=== PATIENT | female | born 1985 | race Caucasian/White ===

== ENCOUNTER 2016-12-19 00:22 | Emergency (ER) | payer OTHER ==
[2016-12-19 00:39] VITALS: BMI 22.8
[2016-12-19] MEDS ORDERED: KETOROLAC TROMETHAMINE 60 MG/2 ML VIAL IM ONE (01:16)
[2016-12-19] MEDS ORDERED: KETOROLAC TROMETHAMINE 60 MG/2 ML VIAL ONE (01:20)
--- NOTE | 2016-12-19 02:58 | PDOC ---
History of Present Illness - General Chief Complaint: Shortness of Breath Stated Complaint: DIFFICULTY BREATHING Time Seen by Provider: 12/19/16 00:49 - History of Present Illness Initial Comments: 12/19/16 02:31 CHIEF COMPLAINT: SOB HISTORY OF PRESENT ILLNESS: 31 yo F with hx of childhood asthma presents to ED with shortness of breath and pain "behind my left breast." Patient states she recently had "croup" that her sister's son and sister both had recently, and has been coughing persistently for two weeks. She denies fever, chills, nausea , vomiting, diarrhea. No recent travel or sick contacts. PAST MEDICAL HISTORY: Denies past medical history FAMILY HISTORY: Denies SOCIAL HISTORY: Denies tobacco, alcohol use. Smokes marijuana twice daily. SURGICAL HISTORY: Denies ALLERGIES: No known drug allergies REVIEW OF SYSTEMS General/Constitutional: Denies fever or chills. Denies weakness, weight change. HEENT: Denies change in vision. Denies ear pain or discharge. Denies sore throat. Cardiovascular: Denies chest pain or shortness of breath. Respiratory: Persistent cough x 2 weeks. Gastrointestinal: Denies nausea, vomiting, diarrhea or constipation. Genitourinary: Denies dysuria, frequency, or change in urination. Musculoskeletal: Denies joint or muscle swelling or pain. Denies neck or back pain. Skin: Denies rash or easy bruising. Neurologic: Denies headache, vertigo, loss of consciousness, or loss of sensation. PHYSICAL EXAM General Appearance: Anxious-appearing, appropriately dressed. HEENT: EOMI, PERRLA, normal ENT inspection, normal voice, TMs normal, pharynx normal. No conjunctival pallor. No photophobia, scleral icterus. Neck: Supple. Trachea midline. No tenderness, rigidity, carotid bruit, stridor , lymphadenopathy, or thyromegaly. Respiratory/Chest: Lungs CTAB. Cardiovascular: RRR. S1, S2. Gastrointestinal/Abdominal: Normal bowel sounds. Abdomen soft, non-distended. No tenderness or rebound tenderness. No organomegaly, pulsatile mass, guarding , hernia, hepatomegaly, splenomegaly. Musculoskeletal/Extremities: Tenderness to chest wall on palpation, worsened with inspiration. Normal inspection. FROM of all extremities, normal capillary refill. Pelvis Stable. No CVA tenderness. No tenderness to extremities, pedal edema, swelling, erythema or deformity. Integumentary: Appropriate color, dry, warm. 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 Fully oriented, alert. Appropriate mood/affect. Motor strength 5/5. No appreciable EOM palsy, facial droop or sensory deficit. Past History - Past Medical History Allergies/Adverse Reactions: Allergies Allergy/AdvReac Type Severity Reaction Status Date / Time No Known Allergies Allergy Verified 12/19/16 00:27 Home Medications: Ambulatory Orders Azithromycin [Zithromax Tri-Eros (3 DAYS) -] 500 mg PO DAILY #3 tablet 12/19/16 Ibuprofen 600 mg PO TID PRN #15 tablet 12/19/16 Psychiatric Problems: Yes (ANXIETY.) Other medical history: CERVICAL CANCER - Surgical History Abdominal Surgery: Yes - Psycho/Social/Smoking Cessation Hx Anxiety: Yes Suicidal Ideation: No Smoking History: Current every day smoker Have you smoked in the past 12 months: No Number of Cigarettes Smoked Daily: 10 Information on smoking cessation initiated: No Hx Alcohol Use: No Drug/Substance Use Hx: No Substance Use Type: None *Physical Exam - Vital Signs Last Vital Signs Temp Pulse Resp BP Pulse Ox 99.3 F 117 H 14 102/65 97 12/19/16 00:28 12/19/16 00:28 12/19/16 00:28 12/19/16 00:28 12/19/16 00:28 ED Treatment Course - RADIOLOGY Radiology Studies Ordered: Category Date Time Status CHEST PA & LAT [RAD] Stat Radiology 12/19/16 02:29 Ordered - Medications Given in the ED: ED Medications Discontinued Medications Generic Name Dose Route Start Last Admin Trade Name Freq PRN Reason Stop Dose Admin Ketorolac Tromethamine 60 mg 12/19/16 01:16 12/19/16 01:24 Toradol Injection - IM 12/19/16 01:17 60 mg ONCE ONE Administration Medical Decision Making - Medical Decision Making 12/19/16 03:18 31 yo F with hx of childhood asthma presents to ED with shortness of breath and chest pain on inspiration and movement. Chest pain reproducible with palpation. -Urine -60 mg Toradol -EKG EKG - NSR. Discussed case with attending MD Delaney, per MD will order D-dimer and CXR r/ o PE. D-dimer negative. CXR suggestive of left upper lobe infiltrate/pneumonitis. -azithromycin 500 mg daily x 3 days, rx sent to pharm Advised patient to take medication as prescribed and f/u with primary care provider. Advised patient of signs and symptoms for return to ER, patient verbalized understanding and agrees to plan. *DC/Admit/Observation/Transfer Diagnosis at time of Disposition: Pneumonitis - Discharge Dispostion Disposition: HOME Condition at time of disposition: Stable Admit: No - Prescriptions Prescriptions: Ibuprofen 600 mg PO TID PRN #15 tablet PRN Reason: Pain Azithromycin [Zithromax Tri-Eros (3 DAYS) -] 500 mg PO DAILY #3 tablet - Patient Instructions Printed Discharge Instructions: DI for Pneumonia -- Adult Additional Instructions: Please take medication as prescribed and follow up with your primary care doctor by the end of the week. If you experience fever, nausea, vomiting, diarrhea, rash, or any new or worsening symptoms, please return to the ER.
[2016-12-19 03:50] VITALS: BP 112/67; PULSE 91; TEMP 97.6
--- NOTE | 2016-12-19 11:57 | EKG ---
Test Reason : Blood Pressure : / mmHG Vent. Rate : 092 BPM Atrial Rate : 092 BPM P-R Int : 202 ms QRS Dur : 088 ms QT Int : 340 ms P-R-T Axes : 054 050 041 degrees QTc Int : 420 ms NORMAL SINUS RHYTHM POSSIBLE LEFT ATRIAL ENLARGEMENT BORDERLINE ECG NO PREVIOUS ECGS AVAILABLE Confirmed by JANETTE CARDOZA MD ([id number]) on 12/19/2016 11:57:32 AM Referred By: Confirmed By:JANETTE CARDOZA MD
== END 2016-12-19 04:12 | disposition home or self-care (01) ==
LOC: JER 00:22
PROC: 3E0233Z Introduction of Anti-inflammatory into Muscle, Percutaneous Approach (ICD-10-PCS; principal; 2016-12-19)
DX: J18.9 Pneumonia, unspecified organism (principal)
CPT/HCPCS: 36415; 71020-TC; 84703; 85379; 93005; 93010; 99281-25

== ENCOUNTER 2019-02-03 19:16 | Emergency (ER) | payer OTHER ==
[2019-02-03 19:31] VITALS: BMI 23.8
--- NOTE | 2019-02-03 20:53 | PDOC ---
History of Present Illness - General Chief Complaint: Pain Stated Complaint: CHEST PAIN Time Seen by Provider: 02/03/19 20:44 - History of Present Illness Initial Comments: 02/03/19 20:44 Ms. Lizarraga is a 33 yo female w/ pmh of [place] (age 21, resolved w/ no sequelae - with additional blood clot attributed to immobilization during episode), and cervical cancer (s/p hysterectomy age 25), who presents for evaluation of 1 month history of intermittent R sided chest pain. Patient relates it is exacerbated by stress and can involve her whole R chest or only a point location. 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 Denies any palpitations, shortness of breath, or other related symptoms. Elected to present today as friend became concerned by her continued symptoms and encouraged her to come. Additionally, patient reports she recently noted mold in her Sister's bathroom where she stays and is concerned this may have contributed to her symptoms. The patient denies shortness of breath, headache and dizziness. Denies fever, chills, nausea, vomit, diarrhea and constipation. Denies dysuria, frequency, urgency and hematuria. Past History - Past Medical History Allergies/Adverse Reactions: Allergies Allergy/AdvReac Type Severity Reaction Status Date / Time No Known Allergies Allergy Verified 12/19/16 00:27 Home Medications: Ambulatory Orders Azithromycin [Zithromax Tri-Eros (3 DAYS) -] 500 mg PO DAILY #3 tablet 12/19/16 Ibuprofen 600 mg PO TID PRN #15 tablet 12/19/16 COPD: No Psychiatric Problems: Yes (ANXIETY.) - Surgical History Abdominal Surgery: Yes - Suicide/Smoking/Psychosocial Hx Smoking History: Never smoked Have you smoked in the past 12 months: No Number of Cigarettes Smoked Daily: 10 Information on smoking cessation initiated: No Hx Alcohol Use: No Drug/Substance Use Hx: No Substance Use Type: None Review of Systems - Review of Systems Comments:: 02/03/19 20:53 GENERAL/CONSTITUTIONAL: No fever or chills. No weakness. HEAD, EYES, EARS, NOSE AND THROAT: No change in vision. No ear pain or discharge. No sore throat. CARDIOVASCULAR: +Chest pain as described. No shortness of breath RESPIRATORY: No cough, wheezing, or hemoptysis. GASTROINTESTINAL: No nausea, vomiting, diarrhea or constipation. GENITOURINARY: No dysuria, frequency, or change in urination. MUSCULOSKELETAL: No joint or muscle swelling or pain. No neck or back pain. SKIN: No rash NEUROLOGIC: No headache, vertigo, loss of consciousness, or change in strength/ sensation. ENDOCRINE: No increased thirst. No abnormal weight change HEMATOLOGIC/LYMPHATIC: No anemia, easy bleeding, or history of blood clots. ALLERGIC/IMMUNOLOGIC: No hives or skin allergy. *Physical Exam - Vital Signs Last Vital Signs Temp Pulse Resp BP Pulse Ox 98.0 F 81 18 114/67 100 02/03/19 19:28 02/03/19 19:28 02/03/19 19:28 02/03/19 19:28 02/03/19 19:28 - Physical Exam Comments: 02/03/19 20:53 GENERAL: Awake, alert, and fully oriented, in no acute distress HEAD: No signs of trauma, normocephalic, atraumatic EYES: PERRLA, EOMI, sclera anicteric, conjunctiva clear ENT: Auricles normal inspection, hearing grossly normal, nares patent, oropharynx clear without exudates. Moist mucosa NECK: Normal ROM, supple, no lymphadenopathy, JVD, or masses LUNGS: No distress, speaks full sentences, clear to auscultation bilaterally HEART: Regular rate and rhythm, normal S1 and S2, no murmurs, rubs or gallops, peripheral pulses normal and equal bilaterally. ABDOMEN: Soft, nontender, normoactive bowel sounds. No guarding, no rebound. No masses EXTREMITIES: Normal inspection, Normal range of motion, no edema. No clubbing or cyanosis. NEUROLOGICAL: Cranial nerves II through XII grossly intact. Normal speech, normal gait, no focal sensorimotor deficits SKIN: Warm, Dry, normal turgor, no rashes or lesions noted. ED Treatment Course - LABORATORY CBC & Chemistry Diagram: 02/03/19 21:10 02/03/19 21:10 Medical Decision Making - Medical Decision Making 02/03/19 23:32 Ms. Lizarraga is a 33 yo female w/ pmh as described who presents for evaluation of symptoms concerning for anxiety vs. MSK pain vs. ACS vs. PE. Patient evaluated with labs as below as well as CTA (negative) and EKG (negative). Suspect pain 2/2 anxiety symptoms. No concern for acute process at this time. Discharging to home. Laboratory Results - last 24 hr 02/03/19 02/03/19 02/03/19 21:10 21:10 21:44 WBC 5.0 RBC 4.16 Hgb 13.1 Hct 37.7 MCV 90.6 MCH 31.4 MCHC 34.7 RDW 12.3 Plt Count 271 MPV 8.5 Absolute Neuts (auto) 2.6 Neutrophils % 51.0 Lymphocytes % 39.5 Monocytes % 7.9 Eosinophils % 1.3 Basophils % 0.3 Nucleated RBC % 0 Sodium 140 Potassium 3.9 Chloride 105 Carbon Dioxide 29 Anion Gap 7 L BUN 14 Creatinine 0.8 Creat Clearance w eGFR 83.66 Random Glucose 87 Calcium 8.7 Total Bilirubin 0.4 AST 22 ALT 18 Alkaline Phosphatase 79 Creatine Kinase 155 Creatine Kinase Index 0.6 CK-MB (CK-2) < 1.0 Troponin I < 0.02 Total Protein 7.7 Albumin 4.2 Urine Color Yellow Urine Appearance Clear Urine pH 5.5 Ur Specific [place] 1.018 Urine Protein Negative Urine Glucose (UA) Negative Urine Ketones Negative Urine Blood Negative Urine Nitrite Negative Urine Bilirubin Negative Urine Urobilinogen 0.2 Ur Leukocyte Esterase Negative Urine WBC (Auto) 1 Urine RBC (Auto) 2 Urine Casts (Auto) 0 U Epithel Cells (Auto) 0.8 Urine Bacteria (Auto) 3.4 *DC/Admit/Observation/Transfer Diagnosis at time of Disposition: Chest pain Qualifiers: Chest pain type: unspecified Qualified Code(s): R07.9 - Chest pain, unspecified - Discharge Dispostion Disposition: HOME - Referrals Referrals: [facility] [place] [facility] [place] [Provider Group] - Patient Instructions Printed Discharge Instructions: DI for Atypical Chest Pain Additional Instructions: You were evaluated today in the ER for your symptoms. We performed chest CT, EKG , and laboratory evaluation with no concerning findings. We have also provided information you can use to establish a primary care provider. Follow-up next week for further evaluation. Return to ER if any shortness of breath, fever, chills, or other concerning symptoms. - Post Discharge Activity
--- NOTE | 2019-02-03 20:59 | PDOC ---
Attending Attestation - Resident Resident Name: [place] - ED Attending Attestation I have performed the following: I have examined & evaluated the patient, The case was reviewed & discussed with the resident, I agree w/resident's findings & plan, Exceptions are as noted - Physicial Exam PE: 02/03/19 23:08 awake alert nad lungs clear bilaterally heart rrr no mrg abd soft nt nd. ext wwp no edema .no calf tenderness no edema. 2 + dp pt pulses. nuero alert oriented x 3. - Medical Decision Making 02/03/19 23:11 33 yo F with h/o cervical ca, s/p hysterectomy h/o guillian barre as child h/o prior dvt here with c/o right sided chest pain, and sob. worse with movement. sharp pain, normal exam differential pe ( pt risk factor h/o prior dvt), costochondritis, acs unlikley given age, pna ( no fever so less likley ) plan labs ekg cta. <Belle Smith - Last Filed: 02/03/19 23:08> - HPI HPI: 02/03/19 21:24 The patient is a 33 year old female, with a significant past medical history cervical cancer, [place], DVT, and ?P\pneumonitis, who presents to the emergency department with, 1 month of intermittent, sharp right sided, nonradiating, nonpleuritic chest pain worsening with stress with associated shortness of breath. As per patient, she recently found out there was mold in her apartment just prior to the onset of this episode. She notes her symptoms to feel similar to an episode of pneumonitis she had in the past. She denies recent fevers, chills, headache or dizziness. She denies recent nausea, vomit, diarrhea or constipation. She denies recent dysuria, frequency, urgency or hematuria. Allergies: NKDA - Medical Decision Making REPORT: Axial CTA of the chest. Reconstructed images are obtained, with MIP images. No pulmonary embolism seen. No aortic dissection seen. Lungs show no focal consolidation or effusion or pneumothorax. Mild atelectasis and coarse lung markings. One or more of the following dose reduction techniques were used: automated exposure control, adjustment of the mA and/or kV according to patient size, use of iterative reconstructive technique. Read by: Dimitrios Deluca MD <Juliana Wong - Last Filed: 02/03/19 23:28> Attestations - Attestations 02/03/19 21:25 Documentation prepared by Juliana Wong, acting as senior medical technologist for Belle Smith MD. <Juliana Wong - Last Filed: 02/03/19 23:28>
[2019-02-03 21:18] LABS: BASO % 0.3 % (0-2.0); EOS % 1.3 % (0-4.5); HEMATOCRIT 37.7 % (32.4-45.2); HEMOGLOBIN 13.1 GM/dL (10.7-15.3); LYMPH % 39.5 % (8-40); MCH 31.4 pg (25.7-33.7); MCHC 34.7 g/dl (32.0-36.0); MEAN CELL VOLUME 90.6 fl (80-96); MEAN PLT VOLUME 8.5 fl (7.5-11.1); MONO % 7.9 % (3.8-10.2); PLATELET COUNT 271 K/MM3 (134-434); RBC 4.16 M/mm3 (3.60-5.2); RDW 12.3 % (11.6-15.6)
[2019-02-03 21:44] LABS: ALBUMIN 4.2 g/dl (3.4-5.0); ALK PHOS 79 U/L (45-117); ANION GAP 7 MMOL/L (8-16); BILIRUBIN,TOTAL 0.4 mg/dL (0.2-1); BLOOD UREA NITROGEN 14 mg/dL (7-18); CALCIUM 8.7 mg/dL (8.5-10.1); CHLORIDE 105 mmol/L (98-107); CO2 29 mmol/L (21-32); CREATININE 0.8 mg/dL (0.55-1.3); GLUCOSE,RANDOM 87 mg/dL (74-106); POTASSIUM 3.9 mmol/L (3.5-5.1); SGOT/AST 22 U/L (15-37); SGPT/ALT 18 U/L (13-61); SODIUM 140 mmol/L (136-145); TOT PROT 7.7 g/dl (6.4-8.2)
[2019-02-03 22:51] LABS: EPI CELLS 0.8 /HPF (0-5); PH,URINE 5.5 (5.0-8.0); URINE APPEARANCE CLEAR; URINE BACTERIA 3.4 /hpf (NEGATIVE); URINE BILIRUBIN NEGATIVE (NEGATIVE); URINE CASTS 0 /hpf (0-8); URINE COLOR YELLOW; URINE GLUCOSE (UA) NEGATIVE (NEGATIVE); URINE KETONE NEGATIVE (NEGATIVE); URINE LEUK ESTERASE NEGATIVE (NEGATIVE); URINE NITRITE NEGATIVE (NEGATIVE); URINE PROTEIN NEGATIVE (NEGATIVE); URINE RBC 2 /hpf (0-4); URINE UROBILINOGEN 0.2 mg/dL (0.2-1.0); URINE WBC 1 /hpf (0-5)
[2019-02-03 23:18] VITALS: BP 120/72; PULSE 86; TEMP 97.8
--- NOTE | 2019-02-04 12:35 | EKG ---
Test Reason : Blood Pressure : / mmHG Vent. Rate : 075 BPM Atrial Rate : 075 BPM P-R Int : 174 ms QRS Dur : 100 ms QT Int : 388 ms P-R-T Axes : 062 073 057 degrees QTc Int : 433 ms NORMAL SINUS RHYTHM NORMAL ECG WHEN COMPARED WITH ECG OF 19-DEC-2016 02:24, NO SIGNIFICANT CHANGE WAS FOUND Confirmed by RISHI DENG MD ([id number]) on 02/04/2019 12:34:56 PM Referred By: Confirmed By:RISHI DENG MD
== END 2019-02-03 23:59 | disposition home or self-care (01) ==
LOC: JER 19:16
DX: R07.9 Chest pain, unspecified (principal); F41.9 Anxiety disorder, unspecified; Z85.41 Personal history of malignant neoplasm of cervix uteri; Z90.79 Acquired absence of other genital organ(s)
CPT/HCPCS: 36415; 71275-TC; 80053; 81003; 82550; 82553; 84484; 85025; 87086; 93005; 93010; 99283-25

== ENCOUNTER 2019-11-17 22:58 | Emergency (ER) | payer OTHER ==
[2019-11-17 23:17] VITALS: BP 93/68; PULSE 79; TEMP 98; BMI 24.4
--- NOTE | 2019-11-18 00:15 | PDOC ---
History of Present Illness - General Chief Complaint: Injury Stated Complaint: RT WRIST PAIN Time Seen by Provider: 11/17/19 23:32 History Source: Patient Exam Limitations: No Limitations - History of Present Illness Initial Comments: 11/18/19 00:10 Patient is a 34-year-old female with a history of cervical CA 9 years ago with a partial hysterectomy, who is in early menopause, who presents to the ED with a right wrist injury. She states she believes that her bones are weak secondary to being in early menopause and is concerned she broke her wrist. She has broken this wrist in the past, several years ago. The patient states she tripped and fell on an outstretched wrist yesterday. She has tenderness to her wrist and the lateral aspect of her proximal hand. She denies any numbness or tingling. She has not taken anything for her pain. 11/18/19 00:45 Past History - Past Medical History Allergies/Adverse Reactions: Allergies Allergy/AdvReac Type Severity Reaction Status Date / Time No Known Allergies Allergy Verified 12/19/16 00:27 Home Medications: Ambulatory Orders Azithromycin [Zithromax Tri-Eros (3 DAYS) -] 500 mg PO DAILY #3 tablet 12/19/16 Ibuprofen 600 mg PO TID PRN #15 tablet 12/19/16 Ibuprofen [Motrin -] 600 mg PO TID PRN #21 tablet 11/18/19 COPD: No Psychiatric Problems: Yes (ANXIETY.) - Surgical History Abdominal Surgery: Yes - Psycho Social/Smoking Cessation Hx Smoking History: Never smoked Have you smoked in the past 12 months: No Number of Cigarettes Smoked Daily: 10 Hx Alcohol Use: No Drug/Substance Use Hx: No Substance Use Type: None Review of Systems - Review of Systems Comments:: 11/18/19 00:13 - Review of Systems Able to Perform ROS?: Yes Constitutional: No: Fever, Chills, Loss of Appetite, Night Sweats, Weakness Respiratory: No: Cough, Shortness of Breath, Wheezing, Sputum Production Cardiac (ROS): No: Chest Pain, Chest Tightness, Palpitations, Irregular Heart Beat, Edema ABD/GI: No: Nausea, Vomiting, Abdominal Pain, Diarrhea : No Dysuria, No Hematuria, No Frequency, No Urgency, No Vaginal Discharge/ Pain, No Penile Discharge/Pain Musculoskeletal: No: Muscle Pain, Back Pain, Muscle Weakness, Neck Pain; Positive right wrist pain Integumentary: No: Lesions, Rash Neurological: No: Headache, Numbness, Tingling, Weakness, Speech Difficulties *Physical Exam - Vital Signs Last Vital Signs Temp Pulse Resp BP Pulse Ox 98.0 F 79 19 93/68 100 11/17/19 23:13 11/17/19 23:13 11/17/19 23:13 11/17/19 23:13 11/17/19 23:13 - Physical Exam 11/18/19 00:13 - Physical Exam General Appearance: Nourished, Appropriately Dressed, No Distress Neck: Supple, No Lymphadenopathy (R), No Lymphadenopathy (L), No Rigidity, No Decreased range of motion Respiratory/Chest: Lungs Clear, Normal Breath Sounds. No Respiratory Distress, No Accessory Muscle Use Cardiovascular: Regular Rhythm, Regular Rate, S1, S2 Musculoskeletal: Right wrist with tenderness to palpation at the dorsum. No tenderness over the right hand or any fingers. Patient able to move all fingers freely. Sensation intact to the radial, median and ulnar nerve distributions. Brisk capillary refill distally. No elbow tenderness to palpation. Integumentary: Normal Color, Dry. 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 Medical Decision Making - Medical Decision Making 11/18/19 01:07 The patient's right wrist x-ray shows no acute pathology. She has been made aware of this. She can continue to wear the wrist brace that she came into the ED with for support. She should follow-up with orthopedics for further evaluation and treatment and she has been made aware that she should follow-up with a bone health clinic for evaluation. She understands and agrees with treatment plan and the patient is stable for discharge. Discharge - Discharge Information Problems reviewed: Yes Clinical Impression/Diagnosis: Right wrist sprain Qualifiers: Encounter type: initial encounter Qualified Code(s): S63.501A - Unspecified sprain of right wrist, initial encounter Condition: Stable Disposition: HOME - Additional Discharge Information Prescriptions: Ibuprofen [Motrin -] 600 mg PO TID PRN #21 tablet PRN Reason: Pain - Follow up/Referral Referrals: Simon Meeks MD [Staff Physician] - - Patient Discharge Instructions Patient Printed Discharge Instructions: DI for Wrist Sprain Additional Instructions: Your wrist x-ray does not show any fracture. You can continue to wear the wrist brace for support but be sure to open and close your fingers completely several times daily to help prevent stiffness. You can use your wrist as you feel comfortable. You can take Motrin for pain and swelling. You can also ice your wrist to help with pain. Follow-up with orthopedics for repeat evaluation and you should consider following up with a bone health clinic for initial evaluation secondary to your early menopause. - Post Discharge Activity Work/Back to School Note: Back to Work
== END 2019-11-18 01:12 | disposition home or self-care (01) ==
LOC: JER 22:58
DX: S63.501A Unspecified sprain of right wrist, initial encounter (principal); X58.XXXA Exposure to other specified factors, initial encounter; Y93.89 Activity, other specified; Y92.89 Other specified places as the place of occurrence of the external cause; Y99.8 Other external cause status; F41.9 Anxiety disorder, unspecified; Z85.41 Personal history of malignant neoplasm of cervix uteri; Z90.710 Acquired absence of both cervix and uterus
CPT/HCPCS: 73110-TC-RT-FY; 99281-25